=== PATIENT | male | born 1955 | race Caucasian/White ===

== ENCOUNTER 2017-08-06 11:39 | Observation (INO) | payer OTHER, SELFPAY ==
[2017-08-06 12:12] LABS: #Basophils 0.1 thou/uL (0.0-0.2); #Eosinphils 0.5 thou/uL (0.0-0.7); #Lymphocytes 2.8 thou/uL (1.20-3.40); #Monocytes 0.7 thou/uL (0.11-0.59); #Neutrophils 5.6 thou/uL (1.40-6.50); %Basophils 0.9 % (0.0-1.0); %Eosinophils 4.9 % (0.0-10.0); %Lymphocytes 28.8 % (21.0-51.0); %Monocytes 6.9 % (0.0-10.0); Hematocrit 49.7 % (42.0-52.0); Mean Platelet Volume 7.5 fL (7.4-10.4); Red Blood Cell (RBC) Count 5.66 mill/uL (4.70-6.10); White Blood Cell (WBC) Count 9.6 thou/uL (4.8-10.8)
[2017-08-06 12:13] LABS: PTT 29.8 SEC (22.9-36.1); Prothrombin Time 12.5 SEC (12.0-14.7)
--- NOTE | 2017-08-06 12:20 | RAD ---
PA AND LATERAL CHEST: HISTORY: Chest pain and weakness. COMPARISON: None. FINDINGS: Heart size is borderline. Mediastinal structures appear unremarkable. Lungs are clear of infiltrat es. There are no signs of failure. IMPRESSION: Borderline heart size. POS: C
[2017-08-06 12:28] LABS: ALT (SGPT) 35 U/L (8-55); AST (SGOT) 24 U/L (5-34); Alkaline Phosphatase 69 U/L (40-150); Anion Gap 17 mmol/L (10-20); BUN (Urea Nitrogen) 16 mg/dL (8.4-25.7); Bilirubin, Total 0.3 mg/dL (0.2-1.2); CK (CPK) 69 U/L (30-200); Calc. Creatinine Clearance 0 mL/min (70-130); Calcium 10.2 mg/dL (7.8-10.44); Carbon Dioxide 19 mmol/L (23-31); Chloride 108 mmol/L (98-107); Estimated GFR-MDRD 76; Globulin 3.3 g/dL (2.4-3.5); Lipase 18 U/L (8-78); Protein, Total 7.6 g/dL (5.8-8.1)
[2017-08-06 12:32] LABS: Troponin I Less than 0.010 ng/mL (< 0.028)
[2017-08-06] MEDS ORDERED: diphenhydrAMINE 50 MG/ML VIAL ONE (12:34)
[2017-08-06] MEDS ORDERED: Metoclopramide HCl 10 MG/2 ML VIAL ONE (12:34)
[2017-08-06] MEDS ORDERED: Nitroglycerin 2% Ointment 1 INCH/1 GM Packet ONE (12:34)
--- NOTE | 2017-08-06 13:27 | CT ---
CT OF BRAIN PERFORMED WITHOUT CONTRAST ENHANCEMENT: History: Altered mental status. FINDINGS: Some generalized ventricular and sulcal prominence. There are no signs of intracerebral hemorrhage o r extraaxial fluid collections. The mastoid air cells and visualized sinuses are clear. IMPRESSION: No acute intracranial abnormalities. POS: [facility]
[2017-08-06 15:04] VITALS: BMI 27.1
[2017-08-06] MEDS ORDERED: Acetaminophen 325 MG TAB PO PRN ×2 (15:38→18:10)
[2017-08-06] MEDS ORDERED: Aspirin 325 MG TAB PO SCH (15:45)
[2017-08-06 16:13] LABS: Troponin I Less than 0.010 ng/mL (< 0.028)
[2017-08-06] MEDS: HYDROcodone/Acetaminophen 10/325 mg Tablet PO PRN ×2 (17:14→23:41)
[2017-08-06] MEDS ORDERED: Ondansetron ODT 4 MG TAB PO PRN (18:10)
[2017-08-06] MEDS ORDERED: Mag-Al 1200 mg/1200 mg/30 ML UDCUP PO PRN (18:10)
[2017-08-06] MEDS ORDERED: Nitroglycerin 0.4 MG TAB (25 Tab Bottle) PO PRN (18:10)
[2017-08-06] MEDS ORDERED: Ondansetron HCl/PF 4 MG/2 ML Vial IVP PRN (18:10)
[2017-08-06] MEDS ORDERED: Senokot 8.6 MG TAB PO PRN (18:10)
[2017-08-06] MEDS ORDERED: Calcium Carbonate 500 MG ChewTAB PO PRN (18:10)
[2017-08-06] MEDS ORDERED: Diabetic Tussin 200 MG/10 ML UDCUP PO PRN (18:16)
[2017-08-06] MEDS ORDERED: Ibuprofen 200 MG TAB PO PRN (18:17)
[2017-08-06] MEDS ORDERED: hydrALAZINE 20 MG/ML VIAL SLOW IVP PRN (18:23)
[2017-08-06] MEDS ORDERED: cloNIDine 0.1 MG TAB PO PRN (18:23)
[2017-08-06] MEDS ORDERED: Amlodipine 5 MG TAB PO SCH (18:30)
--- NOTE | 2017-08-06 18:31 | PDOC.EVN ---
Event Note - Event Note Event Note: Not dictated. Imp 1. CP c/w Stable angina 2. HTN - uncontrolled 3. CKD 2 4. h/o prostate Ca - in remission.
[2017-08-06 18:48] LABS: Troponin I Less than 0.010 ng/mL (< 0.028)
--- NOTE | 2017-08-06 19:09 | HP ---
DATE OF ADMISSION: 08/06/2017 PRIMARY CARE PHYSICIAN: None. CHIEF COMPLAINT: Chest discomfort. HISTORY OF PRESENT ILLNESS: Patient is a 62-year-old male with no previous cardiac history, who pre sented to the hospital with above complaints. Over the last one month, patient developed gradual worsening chest discomfort along with shortness o f breath. The chest pain is pressure-like aggravated by mild exertion. He also has intermittent di aphoresis along with lightheadedness. Six months ago, he could walk longer without chest pain. He has to stop and catch his breath after which his chest pressure resolves. He denies recent immobili zation or travel. Over the last one month, he also has coughing without any fever or chills. He de nies any syncope, double vision, blurring of vision or facial symmetry. His chest pain was moderate in intensity, worse on minimal exertion. He also had intermittent headache that was generalized co nstant without any aggravating or relieving factor. In the emergency room, initial vital signs showed temperature 97.4 with respiration of 34, pulse rat e of 73, blood pressure 162/100 with O2 saturation of 99% on room air. His initial EKG showed sinus rhythm with first degree AV block. His initial troponins were negative. He received Reglan, IV fl uids, aspirin and 1 inch nitro patch was placed. He denies any chest pain at this time. PAST MEDICAL HISTORY: 1. Prostate cancer followed by urologist in [place]. 2. Degenerative joint disease on chronic nonsteroidal anti-inflammatory drugs. PAST SURGICAL HISTORY: 1. Multiple right shoulder surgery. 2. Bilateral knee surgery. 3. Neck surgery. 4. Left leg surgery. 5. [place] tooth extraction. 6. Cholecystectomy. 7. Prostatectomy. 8. Tonsillectomy. 9. Appendectomy. ALLERGIES: Patient is allergic to LORATADINE. CURRENT HOME MEDICATIONS: Aspirin 81 mg daily. He also takes Aleve on a daily basis. SOCIAL HISTORY: Patient currently lives at home with his family. No smoking, alcohol or drug use. FAMILY HISTORY: Pacemaker in 2 family members on father's side. REVIEW OF SYSTEMS: The following complete review of systems was negative, unless otherwise mentione d in the HPI or below: CONSTITUTIONAL: Weight loss or gain, ability to conduct usual activities. SKIN: Rash, itching. EYES: Double vision, pain. ENT/MOUTH: Nose bleeding, neck stiffness, pain, tenderness. CARDIOVASCULAR: Palpitations, dyspnea on exertion, orthopnea. RESPIRATORY: Shortness of breath, wheezing, cough, hemoptysis, fever or night sweats. GASTROINTESTINAL: Poor appetite, abdominal pain, heartburn, nausea, vomiting, constipation, or diar tammy. GENITOURINARY: Urgency, frequency, dysuria, nocturia. MUSCULOSKELETAL: Pain, swelling. NEUROLOGIC/PSYCHIATRIC: Anxiety, depression. ALLERGY/IMMUNOLOGIC: Skin rash, bleeding tendency. PHYSICAL EXAMINATION: VITAL SIGNS: As discussed above. GENERAL: A 62-year-old male in no apparent distress. Denies any chest discomfort while resting. HEENT: Head, atraumatic, normocephalic. Sclerae are anicteric. Moist mucous membranes. No oral l esion. NECK: Supple, no JVD, no carotid bruit. LUNGS: Clear to auscultation bilaterally. HEART: S1, S2 present. Regular rate and rhythm. No murmurs, rubs or gallops appreciated. No repr oducible chest wall tenderness. ABDOMEN: Soft, nontender, bowel sounds present. EXTREMITIES: No edema or calf tenderness. NEUROLOGIC: Grossly nonfocal, moves all 4 extremities. PSYCHIATRY: Alert, awake, oriented x3. SKIN: Warm and dry. LYMPH NODES: No palpable lymph nodes in the neck. PERIPHERAL VASCULAR: Radial pulses palpable bilaterally. MUSCULOSKELETAL: No joint swelling or tenderness. LABORATORY FINDINGS: Troponins were normal. Lipid profile showed LDL of 113, cholesterol 172. LFT s in normal range, potassium 3.9 with sodium 140, BUN 16, creatinine 1. CBC showed WBC 9.6 with hem oglobin 16.9, hematocrit 49.7, platelet 378. EKG by my review as discussed above. Chest x-ray by m y review was negative for infiltrate. His heart size was borderline. CT scan of the brain by my re view was negative for acute findings. D-dimer was negative. IMPRESSION: 1. Chest discomfort. His symptoms are consistent with stable angina. We will continue aspirin. W e will add statin. The patient will be kept n.p.o. past midnight. We will consult Cardiology for p ossible cardiac intervention. 2. First degree atrioventricular block. 3. Headache, probably secondary to elevated blood pressure. His blood pressure on arrival was 162/ 100. CT brain was negative. 4. Chronic kidney disease stage 2. 5. Degenerative joint disease on chronic nonsteroidal anti-inflammatory drugs. Patient was advised to discontinue nonsteroidal anti-inflammatory drugs due to risk of side effects. 6. History of prostate cancer in remission. Recent PSA was negative per patient report. Plan of care was discussed with the patient and he stated understanding.
[2017-08-06] MEDS: guaiFENesin ER 600 MG TAB PO SCH (20:52)
[2017-08-06] MEDS: Famotidine 20 MG TAB PO SCH (20:52)
[2017-08-06] MEDS: Acetaminophen/Codeine 30-300mg Tablet PO PRN (20:52)
[2017-08-06] MEDS ORDERED: Atorvastatin Calcium 20 MG TAB PO SCH (21:00)
[2017-08-06] MEDS ORDERED: Carvedilol 3.125 MG TAB PO SCH (21:00)
[2017-08-07] MEDS: Acetaminophen/Codeine 30-300mg Tablet PO PRN (04:04)
[2017-08-07 04:36] LABS: #Basophils 0.1 thou/uL (0.0-0.2); #Eosinphils 0.5 thou/uL (0.0-0.7); #Lymphocytes 2.8 thou/uL (1.20-3.40); #Monocytes 0.7 thou/uL (0.11-0.59); #Neutrophils 4.8 thou/uL (1.40-6.50); %Basophils 0.9 % (0.0-1.0); %Eosinophils 5.8 % (0.0-10.0); %Lymphocytes 31.5 % (21.0-51.0); Hematocrit 44.2 % (42.0-52.0); Mean Platelet Volume 7.4 fL (7.4-10.4); Red Blood Cell (RBC) Count 4.98 mill/uL (4.70-6.10)
[2017-08-07 04:57] LABS: ALT (SGPT) 33 U/L (8-55); AST (SGOT) 24 U/L (5-34); Alkaline Phosphatase 59 U/L (40-150); Anion Gap 11 mmol/L (10-20); BUN (Urea Nitrogen) 16 mg/dL (8.4-25.7); Bilirubin, Total 0.3 mg/dL (0.2-1.2); Calc. Creatinine Clearance 84 mL/min (70-130); Calcium 8.8 mg/dL (7.8-10.44); Carbon Dioxide 23 mmol/L (23-31); Chloride 108 mmol/L (98-107); Estimated GFR-MDRD 76; Globulin 2.6 g/dL (2.4-3.5); Magnesium 2.1 mg/dL (1.6-2.6); Protein, Total 6.2 g/dL (5.8-8.1)
--- NOTE | 2017-08-07 06:50 | PDOC.PN ---
- Subjective Encounter Start Date: 08/07/17 Encounter Start Time: 06:48 Patient seen and examined. Chest pain around 3:30 and another episode 4 am pressure lie 4/10 - Patient did not notify RN. Now resolved. No other overnight events - Objective Resuscitation Status: Resuscitation Status FULL:Full Resuscitation Vital Signs & Weight: Vital Signs (12 hours) Temp Pulse Resp BP Pulse Ox 08/06/17 23:29 98.3 F 71 18 127/67 96 08/06/17 19:57 98.4 F 68 18 122/70 96 08/06/17 19:55 97.6 F 64 18 Weight Weight 168 lb 14.4 oz I&O: 08/05/17 08/06/17 08/07/17 06:59 06:59 06:59 Intake Total 960 Output Total 300 Balance 660 Result Diagrams: 08/07/17 04:03 08/07/17 04:03 EKG Reviewed by me: Yes (Tele SR) Dx/Plan - Plan * Please see dc summary Review of Systems - Medications/Allergies Allergies/Adverse Reactions: Allergies Allergy/AdvReac Type Severity Reaction Status Date / Time loratadine [From Claritin] Allergy Verified 08/06/17 15:31 Medications: Current Medications Acetaminophen (Tylenol) 650 mg PO Q4H PRN PRN Reason: Headache/Fever or Pain Acetaminophen/Codeine Phosphate (Tylenol #3) 1 tab PO Q4H PRN PRN Reason: Moderate Pain (4-6) Last Admin: 08/07/17 04:04 Dose: 1 tab Hydrocodone Bitart/Acetaminophen ([place] 10/325) 1 tab PO Q6H PRN PRN Reason: Pain Last Admin: 08/06/17 23:41 Dose: 1 tab Al Hydroxide/Mg Hydroxide (Maalox) 30 ml PO Q6H PRN PRN Reason: Heartburn or Indigestion Amlodipine Besylate (Norvasc) 5 mg PO DAILY NNEKA Aspirin (Aspirin) 325 mg PO DAILY NNEKA Atorvastatin Calcium (Lipitor) 20 mg PO HS NNEKA Last Admin: 08/06/17 20:51 Dose: 20 mg Calcium Carbonate (Tums) 1,000 mg PO Q4H PRN PRN Reason: Heartburn or Indigestion Clonidine (Catapres) 0.1 mg PO Q4H PRN PRN Reason: Systolic BP > 180 Famotidine (Pepcid) 20 mg PO BID [facility] Last Admin: 08/06/17 20:52 Dose: 20 mg Guaifenesin (Robitussin Sf) 200 mg PO Q4H PRN PRN Reason: Cough Guaifenesin (Mucinex) 600 mg PO Q12HR [facility] Last Admin: 08/06/17 20:52 Dose: 600 mg Hydralazine HCl (Apresoline) 10 mg SLOW IVP Q4H PRN PRN Reason: SBP Greater Than 180 Ibuprofen (Motrin) 400 mg PO Q8H PRN PRN Reason: Pain Last Admin: 08/06/17 19:51 Dose: 400 mg Morphine Sulfate (Morphine) 2 mg SLOW IVP Q4H PRN PRN Reason: Chest Pain Stop: 08/07/17 18:16 Nitroglycerin (Nitrostat) 0.4 mg PO Q5MIN PRN PRN Reason: Chest Pain Ondansetron HCl (Zofran Odt) 4 mg PO Q6H PRN PRN Reason: Nausea/Vomiting Ondansetron HCl (Zofran) 4 mg IVP Q6H PRN PRN Reason: Nausea/Vomiting Senna (Senokot) 2 tab PO HSPRN PRN PRN Reason: Constipation Sodium Chloride (Flush - Normal Saline) 10 ml IVF PRN PRN PRN Reason: Saline Flush
[2017-08-07 07:40] LABS: Troponin I Less than 0.010 ng/mL (< 0.028)
[2017-08-07] MEDS: Famotidine 20 MG TAB PO SCH (07:52)
[2017-08-07] MEDS: guaiFENesin ER 600 MG TAB PO SCH (07:53)
[2017-08-07] MEDS ORDERED: Aspirin 325 MG TAB PO SCH (09:00)
[2017-08-07] MEDS ORDERED: Amlodipine 5 MG TAB PO SCH (09:00)
[2017-08-07] MEDS ORDERED: Heparin 10,000 UNITS/1 ML VIAL ONE (13:15)
--- NOTE | 2017-08-07 13:23 | CON ---
DATE OF CONSULTATION: 08/07/2017 REASON FOR CONSULTATION: Increased shortness of breath and chest tightness. PRIMARY PROVIDER: Dr. Hunt HISTORY OF PRESENT ILLNESS: Mr. Blanchard is a very pleasant 62-year-old gentleman with no previous hi story of underlying coronary disease. He states over the last month he has had increased shortness o f breath and chest tightness and pressure. This mainly occurs with exertion. He states he has diffi culty walking short distances. No other ameliorating, exacerbating, or precipitating factors present . He presented to the emergency room with the above. D-dimer was negative. His BNP was 22. HOME MEDICATIONS: Naprosyn, acetaminophen, glucosamine, aspirin, vitamin E. ALLERGIES: CLARITIN. PAST MEDICAL AND SURGICAL HISTORY: Shoulder surgery, knee surgery, neck surgery, cholecystectomy, pr ostatectomy. SOCIAL HISTORY: No current alcohol or tobacco abuse. REVIEW OF SYSTEMS: Ten point review of systems reviewed, as above, otherwise negative. PHYSICAL EXAMINATION: VITAL SIGNS: Blood pressure 139/81, pulse 63, temperature 98. GENERAL: Patient is a pleasant male who is in no acute distress. The patient appears his stated age. NEUROLOGIC: The patient is alert and oriented times 3 with no focal neurologic deficits. HEENT: Sclerae without icterus. Mouth has moist mucous membranes with normal pallor. NECK: No JVD. Carotid upstroke brisk. No bruits bilaterally. LUNGS: Clear to auscultation with unlabored respirations. BACK: No scoliosis or kyphosis. CARDIAC: Regular rate and rhythm with normal S1 and S2. No S3 or S4 noted. No significant rubs, mur murs, thrills, or gallops noted throughout the precordium. PMI is not displaced. There is no parast ernal heave. ABDOMEN: Soft, nontender, nondistended. No peritoneal signs present. No hepatosplenomegaly. No abn ormal striae. EXTREMITIES: 2+ femoral and 2+ dorsalis pedis pulses. No cyanosis, clubbing, or edema. SKIN: No gross abnormalities. PERTINENT LABS: Hemoglobin 15.4, creatinine 1.0. EKG normal sinus rhythm, normal EKG. IMPRESSION: 1. Dyspnea on exertion. 2. Chest tightness. RECOMMENDATIONS: Mr. Blanchard's EKG is negative. His troponin is negative. I discussed 2 options wi th Mr. Blanchard. I discussed noninvasive stress study versus angiography. He states he is not able t o get on a treadmill due to increased shortness of breath. I discussed the risks and benefits of bot h, he decided to proceed with coronary angiography. I discussed in full detail with Mr. Blanchard. Th e risks of the procedure include but are not limited to the following: , stroke, DE, need for emergency surgery, loss of limb, bleeding, and infection, as well as a re action to the dye causing kidney failure and needing long-term dialysis. I also discussed the risks of PCI to include all of the above including coronary dissection and perforation in addition to acute stent thrombosis and restenosis. All questions about the procedure were answered. Given the above, the patient agreed to proceed with coronary angiography and possible PCI. All questions were answered. I also discussed drug-coated versus nondrug coated stent placement. Th ere are no contraindications to proceed if needed. Further recommendations pending the above.
[2017-08-07] MEDS ORDERED: Midazolam HCl 2 mg/2 ml Vial ONE (13:37)
[2017-08-07] MEDS ORDERED: Fentanyl 100 MCG/2 ML VIAL ONE (13:37)
[2017-08-07] MEDS ORDERED: Sodium Chloride 0.9% 1,000 ML IV SCH ×2 (13:45→14:15)
[2017-08-07] MEDS ORDERED: traMADol HCl 50 MG TAB PO PRN (14:09)
[2017-08-07] MEDS ORDERED: Acetaminophen/Codeine 30-300mg Tablet PO PRN ×2 (14:09)
[2017-08-07] MEDS ORDERED: Nitroglycerin 0.4 MG TAB (25 Tab Bottle) SL PRN (14:09)
[2017-08-07] MEDS ORDERED: Sodium Chloride 0.9% 200 ML IV SCH (14:15)
[2017-08-07] MEDS ORDERED: Iopamidol 370 76% 100 ML VIAL ONE (14:34)
[2017-08-07 15:33] VITALS: BP 143/71; TEMP 97.6
--- NOTE | 2017-08-07 20:54 | CON ---
DATE OF CONSULTATION: 08/07/2017 This is a 62-year-old gentleman, 5 feet 6, BMI 27 who was admitted to the hospital with chest pain, p ressure and shortness of breath. He underwent a cardiac catheterization, he was noted to have 40% di sease in his apparently left main. He still complained of difficulty breathing, still has some press ure sensation. Cardiology was planning to discharge him. Because of persistent shortness of breath we have been consulted. He has never smoked. No prior history of TB, pneumonia or bronchial asthma. A few years ago the patient had shoulder surgery. Following he was apparently laid off. Now for t he last 1 month he is noticing when exerts himself, works in his home, a couple of hundred feet he ge ts short of breath. He denies any heaviness or any chest pain. No wheezing, no coughing. No prior history of TB, pneumonia or bronchial asthma. PAST MEDICAL HISTORY: Right shoulder surgery, knee surgery, neck surgery. Prostate cancer surgery d one in [place] for cancer. Apparently he is in remission. Tonsils, appendix. MEDICATIONS: Aspirin. SOCIAL/FAMILY HISTORY: No history of asthma of family issues. REVIEW OF SYSTEMS: Otherwise 10 point negative. PHYSICAL EXAMINATION: VITAL SIGNS: Blood pressure is 140/71, sats are 99% on room air, respirations 16, temperature 97. CHEST: Chest reveals no crackles, no wheezing. CARDIAC: Normal S1, S2. ABDOMEN: Soft, no masses. LABORATORY: White count 9,000, H&H unremarkable. Electrolytes are normal. IMPRESSION: 1. Dyspnea, I doubt pulmonary etiology, though we will do a pulmonary function test. 2. Nonsmoker. 3. Coronary artery disease. 4. Hypertension. 5. Major anxiety. 6. Probably hyperventilation. I observed the patient at length. On exam he was having multiple episodes of hyperventilation like b reathing. He had been doing this at home, unknown for what period of time, even though he seems not anxious, his agrees that he has a lot of stress in his life, since he was laid off. I have orde red a pulmonary function test. I showed him some purse-lip breathing technique. I will see him in t office for pulmonary function test. He wants to go home. I agree. I will follow.
--- NOTE | 2017-08-07 22:17 | DIS ---
DATE OF DISCHARGE: 08/07/2017 DISCHARGE DISPOSITION: Home. ALLERGIES: The patient is allergic to LORATADINE. DISCHARGE MEDICATIONS: Nitroglycerin sublingual as needed, Lipitor 20 mg daily, aspirin 81 mg daily, Tylenol as needed, amlodipine 5 mg daily, vitamin E daily, glucosamine daily. The patient was seen and examined on the day of discharge, denies any new complaints, no chest pain a t the time of discharge. INPATIENT CONSULTANTS: 1. Cardiology, Dr. Sheriff. 2. Pulmonary, Dr. Manriquez. Pulmonary function test as outpatient is recommended. BRIEF HOSPITAL COURSE: Patient is a 62-year-old male with no previous cardiac history, presented to the emergency room with chest discomfort and shortness of breath. Please refer to the history and ph ysical dated 08/06/2017 for further details. The patient was admitted to the hospital with the diagnosis of chest discomfort, rule out acute coron olga syndrome. His serial cardiac enzymes were negative. Due to his symptoms consistent with angina, cardiac catheterization was done that showed 40% lesion in the mid LAD. Medical therapy was recomme nded. Echocardiogram showed left ventricular ejection fraction of 55-60% with mild mitral regurgitat ion, mild tricuspid regurgitation. Due to ongoing shortness of breath, patient was evaluated by [place] [facility], Dr. Manriquez as well. Pulmonary function test has been recommended. He will follow up with Dr. Franki nobles as outpatient. FINAL DIAGNOSES: 1. Chest discomfort with shortness of breath. Acute coronary syndrome ruled out. Pulmonary functio n test as outpatient. 2. Hypertension. The patient has been started on amlodipine. 3. Anxiety. 4. Coronary artery disease as discussed above. 5. Headache on admission, resolved. Probably secondary to uncontrolled blood pressure. 6. Chronic kidney disease stage 2. 7. Degenerative joint disease on chronic nonsteroidal anti-inflammatory drugs. He was advised to di scontinue NSAIDs. 8. History of prostate cancer in remission. 9. First degree AV block. Plan of care was discussed with the patient. He stated understanding. SIGNIFICANT LABORATORY DATA: 1. D-dimer was negative. 2. BNP in normal range. 3. Troponins were normal. 4. TSH 3.7. 5. Fasting lipid profile showed LDL 113, cholesterol 172, triglyceride 112 with HDL of 37.
--- NOTE | 2017-09-16 13:52 | EKG ---
Test Reason : Blood Pressure : / mmHG Vent. Rate : 071 BPM Atrial Rate : 071 BPM P-R Int : 222 ms QRS Dur : 086 ms QT Int : 378 ms P-R-T Axes : -02 -30 014 degrees QTc Int : 410 ms Sinus rhythm with 1st degree A-V block Left axis deviation Abnormal ECG Confirmed by IKE REEDER, CONNOR ([id number]), image editor DIXIE COLEMAN ([id number]) on 09/16/2017 1:52:11 PM Referred By: Confirmed By:CONNOR RAMIRES MD
== END 2017-08-07 17:17 | disposition home or self-care (01) ==
LOC: ERS 11:39 → 2SW 13:34 → ERS 14:42
PROVIDERS: ADMIT Internal Medicine Nephrology; ATTEND Internal Medicine Nephrology
DX: R07.89 Other chest pain (principal); R51 Headache; I25.10 Atherosclerotic heart disease of native coronary artery without angina pectoris; I12.9 Hypertensive chronic kidney disease with stage 1 through stage 4 chronic kidney disease, or unspecified chronic kidney disease; N18.2 Chronic kidney disease, stage 2 (mild); C61 Malignant neoplasm of prostate; F41.9 Anxiety disorder, unspecified; I44.0 Atrioventricular block, first degree; Z88.8 Allergy status to other drugs, medicaments and biological substances
CPT/HCPCS: 36415; 70450; 71010; 76942; 80053; 80061; 82550; 82553; 83690; 83735; 83880; 84443; 84484; 85025; 85379; 85610; 85730; 93005; 93306; 93458; 94760; 96361; 96374; 96375; 99152; C1760; C1769; G0378; J1200; J1644; J2250; J2405; J2765; J3010

== ENCOUNTER 2018-10-07 12:13 | Outpatient (CLI) | payer MEDICARE ==
--- NOTE | 2018-10-07 14:34 | MRI ---
NONCONTRAST MRI LUMBAR SPINE: Date: 10/07/18 HISTORY: Spinal stenosis, unspecified spinal region. Patient has complained of low back pain for a couple of y ears, and occasionally has pain radiating down bilateral legs to the level of the feet. COMPARISON: None available. FINDINGS: There is a 1.1 cm increased T2-weighted signal intensity lesion seen within the inferior pole of the left kidney, which is difficult to characterize on this exam, but statistically likely represents a s mall cyst. A smaller difficult to characterize subcentimeter hyperintense lesion is seen in the super ior pole of the right kidney, also statistically likely representing a cyst, with very tiny exophytic T2 hyperintense structure at the inferior pole of the right kidney. There is mild, nonspecific heterogeneity of the bone marrow, with small, subcentimeter, focus of incr eased T1 and T2-weighted signal intensity seen in the L5 vertebral body, probably related to either s mall focal layer of fat or a hemangioma. There is slight Grade I anterolisthesis of L3 on L4. Vertebral body heights do appear to be within no rmal limits. L1-2 Level: There is mild broad based disc osteophyte complex with mild facet degenerative changes. Mild central spinal canal narrowing is present. The neural foramina are patent. L2-3 Level: Again, there is mild broad based disc osteophyte complex present. Mild generalized narro wing of the central spinal canal is noted. Neural foramina are patent. L3-4 Level: There is loss of intervertebral disc height. There is a broad based disc osteophyte comp james with moderate facet hypertrophic changes and mild ligamentous thickening. As noted above, there i s slight Grade I anterolisthesis of L3 on L4, which is likely attributable to the prominent facet deg enerative changes. Findings result in severe narrowing of the central spinal canal. There is minimal bilateral neural foraminal narrowing on the right. Left neural foramen appears patent. L4-5 Level: There is a broad based disc osteophyte complex and facet hypertrophic changes, greater o n the right, with fluid signal intensity seen in the right-sided facet joint. Ligamentous thickening is present, also greater on the right. There is resultant moderate narrowing of the central spinal ca nal, as well as narrowing of the subarticular zones bilaterally. There is moderate to severe left-heather ed neural foraminal narrowing with moderate right-sided neural foraminal narrowing. L5-S1 Level: There is a broad based disc osteophyte complex. Mild facet degenerative changes are pre sent at this level. There is no significant narrowing of the thecal sac. Mild bilateral neural forami nal narrowing is present. IMPRESSION: 1. Disc degenerative changes seen throughout the lumbar spine, greatest at the L3-4 and L4-5 levels. There is severe central spinal canal narrowing at the L3-4 level, as well as Grade I anterolisthesis at this level. At the L4-5 level, there is severe left and moderate right-sided neural foraminal feliz rowing, as well as moderate narrowing of the central spinal canal. 2. T2 hyperintense lesions in each kidney, which statistically likely represent renal cysts. POS: [facility]
== END 2018-10-07 12:14 | disposition home or self-care (01) ==
LOC: BICMRI 12:13
PROVIDERS: ATTEND Orthopaedic Surgery
DX: M48.061 Spinal stenosis, lumbar region without neurogenic claudication (principal); M47.816 Spondylosis without myelopathy or radiculopathy, lumbar region; M43.16 Spondylolisthesis, lumbar region; N28.9 Disorder of kidney and ureter, unspecified
CPT/HCPCS: 72148

== ENCOUNTER 2018-12-02 08:46 | Outpatient (CLI) | payer MEDICARE ==
[2018-12-02 10:10] LABS: Hemoglobin 16.2 g/dL (14.0-18.0); Mean Corpuscular HGB CONC 33.2 g/dL (32.0-36.0); Mean Corpuscular Hemoglobin 29.5 pg (27.0-31.0); Mean Corpuscular Volume 88.7 fL (78.0-98.0); Mean Platelet Volume 7.4 fL (7.4-10.4); Platelet Count 383 thou/uL (130-400); RBC Distribution Width 12.2 % (11.5-14.5); Red Blood Cell (RBC) Count 5.51 mill/uL (4.70-6.10); White Blood Cell (WBC) Count 6.9 thou/uL (4.8-10.8)
[2018-12-02 10:21] LABS: INR-International Normal Ratio 0.9; Prothrombin Time 12.6 SEC (12.0-14.7)
[2018-12-02 10:22] LABS: PTT 31.1 SEC (22.9-36.1)
[2018-12-02 10:38] LABS: Anion Gap 12 mmol/L (10-20); BUN (Urea Nitrogen) 15 mg/dL (8.4-25.7); Calc. Creatinine Clearance 0 mL/min (70-130); Calcium 10.1 mg/dL (7.8-10.44); Carbon Dioxide 25 mmol/L (23-31); Chloride 105 mmol/L (98-107); Estimated GFR-MDRD 59; Glucose 105 mg/dL (80-115); Potassium 4.5 mmol/L (3.5-5.1); Sodium 137 mmol/L (136-145)
--- NOTE | 2018-12-02 18:20 | EKG ---
Test Reason : Blood Pressure : / mmHG Vent. Rate : 072 BPM Atrial Rate : 072 BPM P-R Int : 220 ms QRS Dur : 084 ms QT Int : 364 ms P-R-T Axes : 033 -48 026 degrees QTc Int : 398 ms Sinus rhythm with 1st degree A-V block Left axis deviation Abnormal ECG When compared with ECG of 06-AUG-2017 11:42, No significant change was found Confirmed by DR. Rakesh HENSLEY ([id number]) on 12/02/2018 6:19:52 PM Referred By: NANCY Confirmed By:DR. Rakesh HENSLEY
== END 2018-12-02 08:47 | disposition home or self-care (01) ==
LOC: LABBT 08:46
PROVIDERS: ATTEND Surgery
DX: Z01.818 Encounter for other preprocedural examination (principal); M48.061 Spinal stenosis, lumbar region without neurogenic claudication; M54.16 Radiculopathy, lumbar region
CPT/HCPCS: 80048; 85027; 85610; 85730; 93005; 93010

== ENCOUNTER 2018-12-11 08:05 | Day surgery (SDC) | payer MEDICARE ==
[2018-12-02 08:54] VITALS: BMI 28.0
[2018-12-11] MEDS ORDERED: Scopolamine 1.5 mg/72 hour Patch ONE (10:02)
[2018-12-11] MEDS ORDERED: Dexamethasone 20 MG/5 ML VIAL ONE (10:37)
[2018-12-11] MEDS ORDERED: Glycopyrrolate 0.2 MG/ML 5 ML SYRINGE ONE (10:37)
[2018-12-11] MEDS ORDERED: PHENYLEPHRINE-NS 100 MCG/ML 10 ML SYRINGE ONE (10:37)
[2018-12-11] MEDS ORDERED: Ondansetron PF 4 MG/2 ML Vial ONE (10:37)
[2018-12-11] MEDS ORDERED: Lidocaine 1% PF 5 ML VIAL ONE (10:37)
[2018-12-11] MEDS ORDERED: Rocuronium Bromide 10 MG/ML (10ML VIAL) ONE (10:37)
[2018-12-11] MEDS ORDERED: PROPOFOL 200 MG/20 ML VIAL ONE (10:37)
[2018-12-11] MEDS ORDERED: ePHEDrine 50 MG/ML VIAL ONE (10:37)
[2018-12-11] MEDS ORDERED: Sodium Chloride 0.9% 10 ML ONE (12:58)
[2018-12-11] MEDS ORDERED: Thrombin 5000 UNITS/5 ML VIAL ONE (12:58)
[2018-12-11] MEDS ORDERED: Fentanyl 100 MCG/2 ML VIAL ONE ×2 (14:10→14:37)
[2018-12-11] MEDS ORDERED: HYDROmorphone 2 MG/ML VIAL SLOW IVP PRN (16:54)
[2018-12-11] MEDS ORDERED: Morphine Sulfate 2 MG/ML SYRINGE SLOW IVP PRN (16:54)
[2018-12-11] MEDS ORDERED: Promethazine HCl 25 MG/ML VIAL SLOW IVP PRN (16:54)
[2018-12-11] MEDS ORDERED: Ondansetron HCl/PF 4 MG/2 ML Vial IVP PRN (16:54)
[2018-12-11] MEDS ORDERED: Promethazine HCl 25 MG/ML VIAL IM PRN ×2 (16:54→17:06)
[2018-12-11] MEDS ORDERED: Meperidine HCl/PF 25 MG/ML VIAL SLOW IVP PRN (16:54)
[2018-12-11] MEDS ORDERED: Bisacodyl 10 MG SUPP PR PRN (17:06)
[2018-12-11] MEDS ORDERED: traMADol HCl 50 MG TAB PO PRN (17:06)
[2018-12-11] MEDS ORDERED: Morphine 4 MG/ML VIAL SLOW IVP PRN (17:06)
[2018-12-11] MEDS ORDERED: Milk Of Magnesia 30 ML UDCUP PO PRN (17:06)
[2018-12-11] MEDS ORDERED: Mag-Al 1200 mg/1200 mg/30 ML UDCUP PO PRN (17:06)
[2018-12-11] MEDS ORDERED: Acetaminophen 325 MG TAB PO PRN (17:06)
[2018-12-11] MEDS ORDERED: Acetaminophen/Codeine 30-300mg Tablet PO PRN (17:06)
[2018-12-11] MEDS ORDERED: Fleet Enema 133 ML BOT PR PRN (17:06)
[2018-12-11] MEDS ORDERED: tiZANidine HCl 4 MG TAB PO PRN (17:06)
[2018-12-11] MEDS ORDERED: HYDROmorphone 2 MG/ML VIAL ONE (17:11)
[2018-12-11] MEDS: CEFAZOLIN 2 GM in Premix Bag 1 BAG IVPB SCH (19:37)
[2018-12-11] MEDS: Sodium Chloride 0.9% 1,000 ML IV SCH (19:37)
[2018-12-11] MEDS ORDERED: Amlodipine 5 MG TAB PO SCH (21:00)
[2018-12-11] MEDS ORDERED: Atorvastatin Calcium 20 MG TAB PO SCH (21:00)
[2018-12-11] MEDS: HYDROcodone/Acetaminophen 7.5/325 mg Tablet PO PRN (21:57)
[2018-12-12] MEDS: CEFAZOLIN 2 GM in Premix Bag 1 BAG IVPB SCH (01:54)
[2018-12-12] MEDS: HYDROcodone/Acetaminophen 7.5/325 mg Tablet PO PRN (06:37)
[2018-12-12] MEDS: Sodium Chloride 0.9% 1,000 ML IV SCH (06:54)
[2018-12-12 08:17] VITALS: BP 107/66; TEMP 97.9
--- NOTE | 2018-12-12 11:23 | PRG ---
DATE OF SERVICE: 12/12/2018 SUBJECTIVE: Mr. Blanchard is postoperative day 1 from lumbar decompression. He is doing very well with resolution in his leg pain and good strength. We will make arrangements for dismissal. We discussed both intra and postoperative issues. Job ID: [id number]
--- NOTE | 2018-12-12 11:28 | OP ---
DATE OF PROCEDURE: 12/11/2018 CLAIM REPRESENTATIVE: Arash Flores PA-C. PRE-PROCEDURE DIAGNOSIS: Lumbar stenosis with low back and leg pain. POSTPROCEDURE DIAGNOSIS: Lumbar stenosis with low back and leg pain. PROCEDURE PERFORMED: L3-L4 and L4-L5 laminectomies, partial facetectomies, and foraminotomies. DESCRIPTION OF PROCEDURE: After informed consent was obtained from the patient, the patient was brought to the OR. Proper patient, pause, and identification were carried out. He was placed under excellent general endotracheal anesthesia and positioned prone on the OR table. All appropriate points were padded. We identified the L3, L4, and L5 dorsal spines. A linear ariana was made over this area. This region was sterilely cleansed, prepared, and draped. Proper patient, pause, and identification were carried out. The wound was then opened with combination of sharp, monopolar, and blunt dissection. We exposed the L3, L4, and L5 dorsal spines and lamina. Localization film confirmed our area of interest. We then performed L3, L4, and L5 laminectomies, partial facetectomies, and foraminotomies with excellent decompression of common dural tube and nerve roots. Copious irrigation occurred throughout as did maximizing hemostasis. The wound was then closed in anatomic layers following sprinkling of vancomycin powder. The patient then emerged from anesthesia. Job ID: [id number]
== END 2018-12-12 10:44 | disposition home or self-care (01) ==
LOC: SDC 08:05 → SURG A 18:29 → SDC 12-12 10:44
PROVIDERS: ATTEND Surgery
PROC: 01NB0ZZ Release Lumbar Nerve, Open Approach (ICD-10-PCS; principal; 2018-12-11)
DX: M48.061 Spinal stenosis, lumbar region without neurogenic claudication (principal); Z79.82 Long term (current) use of aspirin; Z79.899 Other long term (current) drug therapy; Z88.8 Allergy status to other drugs, medicaments and biological substances
CPT/HCPCS: 76000; J1170; J3010; J3370; J3490

== ENCOUNTER 2019-09-08 12:28 | Outpatient (CLI) | payer MEDICARE ==
--- NOTE | 2019-09-08 13:44 | CT ---
BRAIN CT WITHOUT IV CONTRAST: Date: 09/08/19 HISTORY: Episodic headache. COMPARISON: 08/06/17. FINDINGS: No focal mass or midline shift. No intra or extra-axial hemorrhage. Sinuses and mastoids appear clear . IMPRESSION: No significant acute intracranial process. No mass or bleed. Stable from prior study. POS: [facility]
== END 2019-09-08 12:29 | disposition home or self-care (01) ==
LOC: CT 12:28
PROVIDERS: ATTEND Family Medicine
DX: G44.039 Episodic paroxysmal hemicrania, not intractable (principal)
CPT/HCPCS: 36415; 70450; 80053; 80061; 81001; 84153; 85025

== ENCOUNTER 2019-09-09 15:09 | Emergency (ER) | payer MEDICARE ==
[2019-09-09 17:17] LABS: #Eosinphils 0.2 thou/uL (0.0-0.7); #Monocytes 0.8 thou/uL (0.11-0.59); #Neutrophils 6.7 thou/uL (1.40-6.50); %Basophils 0.4 % (0.0-1.0); %Eosinophils 2.5 % (0.0-10.0); %Lymphocytes 20.2 % (21.0-51.0); %Monocytes 8.4 % (0.0-10.0); %Neutrophils 68.4 % (42.0-75.0); Hemoglobin 17.3 g/dL (14.0-18.0); Mean Corpuscular HGB CONC 34.9 g/dL (32.0-36.0); Mean Corpuscular Hemoglobin 30.4 pg (27.0-31.0); Mean Corpuscular Volume 87.2 fL (78.0-98.0); Mean Platelet Volume 7.3 fL (7.4-10.4); Platelet Count 369 thou/uL (130-400); RBC Distribution Width 12.3 % (11.5-14.5); Red Blood Cell (RBC) Count 5.69 mill/uL (4.70-6.10); White Blood Cell (WBC) Count 9.8 thou/uL (4.8-10.8)
[2019-09-09 17:43] LABS: ALT (SGPT) 27 U/L (8-55); AST (SGOT) 19 U/L (5-34); Albumin 4.8 g/dL (3.4-4.8); Alkaline Phosphatase 92 U/L (40-110); Anion Gap 13 mmol/L (10-20); BUN (Urea Nitrogen) 14 mg/dL (8.4-25.7); Bilirubin, Total 0.6 mg/dL (0.2-1.2); Calc. Creatinine Clearance 0 mL/min (70-130); Calcium 10.2 mg/dL (7.8-10.44); Carbon Dioxide 26 mmol/L (23-31); Chloride 103 mmol/L (98-107); Estimated GFR-MDRD 62; Globulin 3.6 g/dL (2.4-3.5); Glucose 104 mg/dL (80-115); Potassium 4.2 mmol/L (3.5-5.1); Protein, Total 8.4 g/dL (5.8-8.1); Sodium 138 mmol/L (136-145)
[2019-09-09] MEDS ORDERED: Proparacaine 0.5% Opth 15 ML BOT ONE (19:02)
--- NOTE | 2019-09-09 21:33 | CT ---
CTA HEAD WITH AND WITHOUT CONTRAST: 09/09/19 Axial tomograms obtained without IV enhancement. This is followed by postcontrast images following a cerebral angio protocol with multiplanar reconstruction and 3D postprocessing. INDICATIONS: Headache. CT HEAD WITHOUT CONTRAST: No acute intracranial process. No hemorrhage, mass, or infarct. No interval change from yesterday. CT ANGIO HEAD: Intracranial internal carotid arteries are patent and symmetric. Middle cerebral arteries are patent and symmetric. Anterior cerebral arteries are patent. No evidence of aneurysm. No evidence of proxim al stenosis or occlusion. Basilar artery is patent. Posterior cerebrals appear patent and symmetric. connection with the left posterior cerebral. P1 segment on the left is small but patent. IMPRESSION: Unremarkable cerebral angio. CTA NECK: Axial tomograms with multiplanar reconstructions and 3D postprocessing. HISTORY: Headache. Common carotid arteries are patent and symmetric. Mild atherosclerotic change seen in both bulbs. There is soft plaque and calcified plaque in the righ t bulb which does produce mild stenosis; however, the stenosis at the origin of the right ICA is not hemodynamically significant (less than 50% diameter according to NASCET criteria). No stenosis in the left internal carotid artery. Dominant left vertebra. IMPRESSION: Mild to moderate atherosclerotic changes in both bulbs with mild stenosis in the proximal right ICA. POS: OFF
== END 2019-09-09 22:36 | disposition home or self-care (01) ==
LOC: ERS 15:09
DX: R51 Headache (principal); E78.5 Hyperlipidemia, unspecified; E78.00 Pure hypercholesterolemia, unspecified; I10 Essential (primary) hypertension
CPT/HCPCS: 36415; 70496; 70498; 80053; 85025; 85652; 86140

== ENCOUNTER 2020-04-05 14:48 | Outpatient (CLI) | payer MEDICARE ==
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
== END 2020-04-05 14:49 | disposition home or self-care (01) ==
LOC: SCSULT 14:48
PROVIDERS: ATTEND Family Medicine
DX: M79.601 Pain in right arm (principal)

== ENCOUNTER 2020-06-02 07:47 | Outpatient (CLI) | payer MEDICARE, OTHER ==
[2020-06-02 14:28] LABS: INR-International Normal Ratio 0.9; Prothrombin Time 12.5 sec (12.0-14.7)
[2020-06-02 14:42] LABS: #Basophils 0.1 thou/uL (0.0-0.2); #Eosinphils 0.2 thou/uL (0.0-0.7); #Lymphocytes 1.8 thou/uL (1.20-3.40); #Monocytes 0.7 thou/uL (0.11-0.59); #Neutrophils 4.1 thou/uL (1.40-6.50); %Basophils 0.8 % (0.0-1.0); %Eosinophils 3.4 % (0.0-10.0); %Lymphocytes 25.9 % (21.0-51.0); %Monocytes 9.8 % (0.0-10.0); %Neutrophils 60.1 % (42.0-75.0); Hemoglobin 16.8 g/dL (14.0-18.0); Mean Corpuscular Hemoglobin 29.8 pg (27.0-31.0); Mean Corpuscular Volume 90.3 fL (78.0-98.0); Mean Platelet Volume 7.7 fL (7.4-10.4); Platelet Count 371 thou/uL (130-400); RBC Distribution Width 12.5 % (11.5-14.5); Red Blood Cell (RBC) Count 5.63 mill/uL (4.70-6.10); White Blood Cell (WBC) Count 6.8 thou/uL (4.8-10.8)
[2020-06-02 14:46] LABS: Bacteria/HPF None Seen HPF (None Seen); Bilirubin Negative (Negative); Blood, Urine Negative (Negative); Clarity Clear (Clear); Glucose, Urine (Dipstick) Normal (Negative); Ketone, Urine Negative (Negative); Leukocyte Negative Leu/uL (Negative); Nitrite Negative (Negative); Protein, Urine (Dipstick) Negative (Neg-Trace); RBC/HPF 0-3 HPF (0-3); Specific Gravity, Urine 1.007 (1.002-1.036); Squamous Epithelial None Seen HPF (0-3); Urobilinogen Normal mg/dL (Less than 2); WBC/HPF 0-3 HPF (0-3)
[2020-06-02 15:11] LABS: Chloride 104 mmol/L (98-107); Potassium 4.5 mmol/L (3.5-5.1); Sodium 140 mmol/L (136-145)
[2020-06-02 15:12] LABS: Calcium 10.3 mg/dL (7.8-10.44); Glucose 105 mg/dL (80-115)
[2020-06-02 15:14] LABS: Anion Gap 16 mmol/L (10-20); Carbon Dioxide 25 mmol/L (23-31)
[2020-06-02 15:15] LABS: Calc. Creatinine Clearance 0 mL/min (70-130); Estimated GFR-MDRD 63
[2020-06-02 15:16] LABS: BUN (Urea Nitrogen) 12 mg/dL (8.4-25.7)
[2020-06-03 12:32] LABS: SARS-CoV-2 MS2 Positive; SARS-CoV-2 N Gene Negative; SARS-CoV-2 S Gene Negative; SARS-CoV-2 by NAA Not Detected (NotDetected); SARS-CoV-2 orf1ab Negative
--- NOTE | 2020-06-05 16:03 | EKG ---
Test Reason : PREOP Blood Pressure : / mmHG Vent. Rate : 070 BPM Atrial Rate : 070 BPM P-R Int : 232 ms QRS Dur : 082 ms QT Int : 368 ms P-R-T Axes : 044 -62 045 degrees QTc Int : 397 ms Sinus rhythm with 1st degree A-V block Left axis deviation Septal infarct , age undetermined Abnormal ECG No previous ECGs available Confirmed by Perez MIR ([id number]) on 06/05/2020 4:03:10 PM Referred By: Sandra PADRON Confirmed By:Perez MIR
== END 2020-06-02 07:48 | disposition home or self-care (01) ==
LOC: LABBT 07:47
PROVIDERS: ATTEND Orthopaedic Surgery
DX: Z01.818 Encounter for other preprocedural examination (principal); Z20.828 Contact with and (suspected) exposure to other viral communicable diseases; M17.12 Unilateral primary osteoarthritis, left knee
CPT/HCPCS: 80048; 81001; 85025; 85610; 87081; 93005; U0003; 87635; 93010

== ENCOUNTER 2021-07-26 16:35 | Outpatient (CLI) | payer MEDICARE | END 2021-07-26 16:36 | disposition home or self-care (01) | LOC: RAD 16:35 | PROVIDERS: ATTEND Family Medicine | DX: R06.00 Dyspnea, unspecified (principal); R07.9 Chest pain, unspecified | CPT/HCPCS: 71046 ==

== ENCOUNTER 2021-08-10 14:35 | Outpatient (CLI) | payer MEDICARE | END 2021-08-10 14:36 | disposition home or self-care (01) | LOC: BICCT 14:35 | PROVIDERS: ATTEND Family Medicine | DX: R07.9 Chest pain, unspecified (principal); R06.00 Dyspnea, unspecified | CPT/HCPCS: 71260; 71270 ==

== ENCOUNTER 2021-09-07 16:10 | Emergency (ER) | payer MEDICARE, OTHER | END 2021-09-07 19:19 | disposition home or self-care (01) | LOC: ERS 16:10 | DX: S13.9XXA Sprain of joints and ligaments of unspecified parts of neck, initial encounter (principal); S80.02XA Contusion of left knee, initial encounter; S20.219A Contusion of unspecified front wall of thorax, initial encounter; I10 Essential (primary) hypertension; E78.5 Hyperlipidemia, unspecified; V49.40XA Driver injured in collision with unspecified motor vehicles in traffic accident, initial encounter | CPT/HCPCS: 70450; 71260; 72125; 74177 ==

== ENCOUNTER 2021-10-18 11:26 | Outpatient (CLI) | payer MEDICARE | END 2021-10-18 11:27 | disposition home or self-care (01) | LOC: SCSMRI 11:26 | PROVIDERS: ATTEND Surgery | DX: M48.02 Spinal stenosis, cervical region (principal); M47.812 Spondylosis without myelopathy or radiculopathy, cervical region; M50.30 Other cervical disc degeneration, unspecified cervical region | CPT/HCPCS: 72141 ==

== ENCOUNTER 2022-11-14 13:02 | Outpatient (CLI) | payer MEDICARE | END 2022-11-14 13:03 | disposition home or self-care (01) | LOC: RAD 13:02 | PROVIDERS: ATTEND Internal Medicine Critical Care Medicine | DX: R06.00 Dyspnea, unspecified (principal) | CPT/HCPCS: 71046 ==